=== PATIENT | male | born 1990 | race Hispanic/Latino ===

== ENCOUNTER 2025-04-04 16:56 | Emergency (ER) | payer MEDICAID, SELFPAY ==
[2025-04-04 16:57] VITALS: BP 112/82; PULSE 95; RESP 16; TEMP 36.7; O2SAT 98; BMI 28.8
--- NOTE | 2025-04-04 18:08 | ED.RN ---
RN PROTOCOL FOR IV WAS NOT STARTED IN TRIAGE D/T PT BEHAVING LIKE HE MAY NOT STAY. THIS NURSE DID NOT WANT TO RISK PT LEAVING WITH IV IN ARM.
[2025-04-04 18:57] VITALS: BP 109/80; PULSE 87; RESP 16; O2SAT 98
--- NOTE | 2025-04-04 19:29 | EDS_ITS ---
HPI History of Present Illness Chief Complaint: Weakness Informant: patient Narrative Narrative: Patient walked to the ED for evaluation concerns for dehydration. Reports was walking from [place] through [place] make his way down to [place]. He is from [place] he states he relocated to [place] he was staying at the alf for a month, did not work out there for he is working his way down to [place]. States there is family there. Overnight stayed [place]. States he has not had access to water. He came here for evaluation. He has no vomiting no diarrhea. No cough. He denies suicidal or homicidal ideations. We discussed any psychiatric history. He states in [place] diagnosed with borderline schizophrenia and bipolar. Recommend therapy however he did not want to be on medications. Denies any urinary symptoms. For evaluation of right eye appears red. He states he had retinal detachment to the right eye in the past. He does not see out of the right eye. This is not new. [facility] Medical History Detached retina Home Medications ?Medication ?Instructions ?Recorded ?Last Taken ?Type NK 04/04/25 Unknown History Social History Smoking Status: Current every day smoker tobacco type: cigarettes ROS ROS ED Constitutional Constitutional ED: Denies fever(s) Cardiovascular Cardiovascular: Denies chest pain Respiratory/Chest Respiratory/Chest: Denies cough Gastrointestinal Gastrointestinal: Denies diarrhea or vomiting Musculoskeletal Musculoskeletal: Denies none Integumentary Denies rash or wounds Neurologic Neurologic: Reports weakness EXAM Physical Exam Const Vital Signs: 04/04/25 16:57 04/04/25 18:22 04/04/25 18:57 Temperature 98.1 F Temperature Source Oral Pulse Rate 95 87 Respiratory Rate 16 16 Respiratory Effort Normal Non-Labored Blood Pressure 112/82 H 109/80 Blood Pressure Mean 92 89 Pulse Ox 98 98 Oxygen Delivery Method Room Air Room Air 04/04/25 20:00 Temperature Temperature Source Pulse Rate 86 Respiratory Rate 18 Respiratory Effort Blood Pressure 114/78 Blood Pressure Mean 90 Pulse Ox 99 Oxygen Delivery Method Room Air Positive well nourished and well developed General Appearance ED: well developed and NAD HEENT Reports moist mucous membranes normocephalic and atraumatic Eyes Eyes Narrative: Right eye scleral erythema, cloudy lens. Neck full ROM Chest Wall Chest: Negative for tenderness Resp normal respiratory effort and normal air movement Effort and Inspection: symmetric chest movement; Negative for respiratory distress Cardio regular rate, regular rhythm and no murmurs Peripheral Pulses: pulses 2+ throughout GI normal to inspection, nondistended, normoactive bowel sounds and non-tender Palpation: Negative for guarding or rebound tenderness present Extremity normal to inspection General Extremety ED: Negative for edema or tenderness General Extremity: Negative for edema Neuro oriented x3 and no sensory deficits noted Sensorium / Orientation: awake and alert Skin no rashes or lesions noted and no wounds MDM MDM MDM Narrative Medical decision making narrative: Interventions / MDM: Differential diagnosis: Well exam, history of schizophrenia and bipolar Diagnosis considered but do not suspect: N/A My EKG interpretation: N/A Imaging independently reviewed and interpreted by myself: N/A External documents reviewed: N/A Test considered but not ordered:N/A ED course: Patient clinically not dehydrated vital signs stable. Schizophrenia bipolar history denies suicide homicidal ideations. Reports [place] Nursing will provide him drink and food in the ED. Will have [facility] social work evaluate in the ED for additional resources. 2100: Patient evaluated by high school social science teacher in the ED. Also agrees he is appropriate. He was given resources. He was given snacks and water. He will be discharged. 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 It may contain incorrect words, spelling, and punctuation that were not noted in checking the note before signing. Discharge Plan Triage Chief Complaint: Weakness ED Provider: Cassius Samson Dx/Rx/DC Orders Clinical Impression: Well adult exam, Water deprivation, History of retinal detachment Instructions: Well Visit: 18 to 65 Years Prescriptions: No Action NK Primary Care Provider: Care Physician,No Primary Referrals: Care Physician,No Primary [Primary Care Provider] - Activity Restrictions/Additional Instructions: You were evaluated by social work in the ED. You were given water and food. You were given resources. Follow-up with resources given to you if needed. Print Language: Sri [place] Disposition Disposition: Home, Self Care
[2025-04-04 20:00] VITALS: BP 114/78; PULSE 86; RESP 18; O2SAT 99
--- NOTE | 2025-04-04 21:00 | CM.ED ---
Social work Reason for referral: resources Referral source: Dr Mali Samson approached SW asking if had any resources to help patient in patient's continued walk from [place] to [place]. Per Dr Samson, patient originally came from [place] where patient had been diagnosed with borderline personality disorder, bipolar disorder, and schizophrenia. Also per Dr Samson, patient came from [facility] homeless [facility] and intends to walk to [place] to a cousin's home. SW entered patient's room, introducing self and role at [facility] [place]. Patient confirmed the above information and stated being on a Giovany walk. Patient stated becoming closer to the Lord Giov[place] Richard by walking, confessing sins, and praying to the Lord. Patient stated patient's walk began as a way to show patient's that patient intends to be a better to patient's . Patient stated living at [facility] for the last 45 days. Patient stated intent to make it to [place] where a cousin lives to begin working to better my life. Patient did not have valid identification, insurance card, and no emergency contacts. Patient stated having patient's certificate and social security card, as well as knowing patient has [employer] for insurance. Patient stated currently having a felony charge regarding a firearm, making it difficult to stay in most homeless shelters. Per patient, this felony charge will be off patient's record by 2027. Patient expressed understanding that did not have many resources for patient. Patient accepted resources of local food pantries and list of homeless shelters, as well as the [employer] insurance transportation. SW expressed not knowing if patient would qualify for any rides due to the nature of patient's situation, but patient expressed desire to walk the whole distance. Patient expressed intent to walk to [place] and [facility] by tomorrow evening. Patient was alert and oriented and showed no mental health concerns while talking with SW. Patient denied further needs at this time and was given snacks by SW, with permission from nursing. Radha Greenwood, COMFORT FILLER, METAL NEUTRALIZER
== END 2025-04-04 21:02 | disposition home or self-care (01) ==
PROVIDERS: Emergency Provider Emergency Medicine; Visit Provider Emergency Medicine
DX: Z00.00 Encounter for general adult medical examination without abnormal findings (principal); R53.1 Weakness; F17.210 Nicotine dependence, cigarettes, uncomplicated; T73.1XXA Deprivation of water, initial encounter; H33.8 Other retinal detachments
CPT/HCPCS: 99283